=== PATIENT | male | born 2000 | race Caucasian/White ===

== ENCOUNTER → 2024-04-28 08:52 | Outpatient (CLI) | payer OTHER, SELFPAY ==
[2024-04-28 10:57] LABS: Hepatitis B Surface Antigen NEGATIVE s/c (NEGATIVE)
[2024-05-03 15:36] LABS: Varicella IgM Antibody <0.91 index (0.00-0.90)
== END ==
PROVIDERS: Family Provider Pediatrics; PCP Family Medicine; Referring Provider Family Medicine; Visit Provider Family Medicine
DX: Z02.0 Encounter for examination for admission to educational institution (principal)
CPT/HCPCS: 36415; 86787; 87340